=== PATIENT | female | born 1995 ===

== ENCOUNTER 2019-09-03 07:00 | Inpatient (IN) | payer BC, OTHER ==
[~2019-09-03 07:00] MED LIST: Lidocaine 1%/Sod Bicarbonate in NS 8.4% 1 ML Syringe IDERM PRN; Sodium Chloride 0.9% 10 ML Syringe FLUSH PRN
[2019-09-03] MEDS: Lactated Ringers 1,000 ML IV SCH ×2 (07:15→10:54)
[2019-09-03] MEDS ORDERED: Bupivacaine 0.5% 30 ML SDV ONE (07:17)
[2019-09-03] MEDS ORDERED: Midazolam 1 MG/ML 2 ML SDV ONE (07:25)
[2019-09-03] MEDS ORDERED: Propofol 200 MG/20 ML SDV ONE ×2 (07:25→09:10)
[2019-09-03] MEDS ORDERED: Lidocaine 1% 4 ML ONE (07:26)
[2019-09-03] MEDS ORDERED: Morphine PF 10 MG/10 ML SDV ONE (07:26)
--- NOTE | 2019-09-03 07:43 | PCM.PREANE ---
Preanesthetic Assessment - Anesthesia/Transfusion/Family Hx Anesthesia History: Prior Anesthesia Without Reaction Other Type of Anesthesia Reaction Comment: panic attacks after surgery Transfusion History: No Prior Transfusion(s) - Review of Systems General: No Symptoms Pulmonary: No Symptoms Cardiovascular: No Symptoms Gastrointestinal: No Symptoms Neurological: No Symptoms Other: Reports: None - Physical Assessment NPO Status Date: 09/02/19 NPO Status Time: 21:00 Vital Signs: BP: 110/72, HR: 96, RR 16, T:98.1 SpO2: 97% Height: 1.52 m Weight: 78.018 kg ASA Class: 1 Mental Status: Alert & Oriented x3 Airway Class: Mallampati = 2 (receding chin) Dentition: Reports: Normal Dentition Thyro-Mental Finger Breadths: 3 Mouth Opening Finger Breadths: 3 - Allergies Allergies/Adverse Reactions: Allergies Allergy/AdvReac Type Severity Reaction Status Date / Time No Known Allergies Allergy Verified 09/02/19 12:40 - Acknowledgements Anesthesia Type Planned: Spinal Pt an Appropriate Candidate for the Planned Anesthesia: Yes Alternatives and Risks of Anesthesia Discussed w Pt/Guardian: Yes Pt/Guardian Understands and Agrees with Anesthesia Plan: Yes PreAnesthesia Questionnaire HEENT History: Reports: Impaired Vision Other HEENT History: wears glasses Cardiovascular History: Reports: None Respiratory History: Reports: None Gastrointestinal History: Reports: GERD Other Gastrointestinal History: gastric ulcer HOSPICE BEREAVEMENT COORDINATOR History: Reports: , Other (See Below) Other OB/BYN History: ovarian cyst, endometriosis, hirsutism, pelvic pain, laparoscopy Musculoskeletal History: Reports: None Neurological History: Reports: None Psychiatric History: Reports: Anxiety, Depression Endocrine/Metabolic History: Reports: None Other Endocrine/Metabolic History: female hirsutism Hematologic History: Reports: Anemia Immunologic History: Reports: None Oncologic (Cancer) History: Reports: None Dermatologic History: Reports: None - Past Surgical History Head Surgeries/Procedures: Reports: None HEENT Surgical History: Reports: Oral Surgery Cardiovascular Surgical History: Reports: None Respiratory Surgical History: Reports: None GI Surgical History: Reports: EGD Endocrine Surgical History: Reports: None Neurological Surgical History: Reports: None Musculoskeletal Surgical History: Reports: None Oncologic Surgical History: Reports: None Dermatological Surgical History: Reports: None - SUBSTANCE USE Smoking Status *Q: Never Smoker Second Hand Smoke Exposure: No Recreational Drug Use History: No - HOME MEDS Home Medications: Home Meds Omeprazole 20 mg PO DAILY PRN 07/09/15 [History] buPROPion HCl [Wellbutrin SR] 150 mg PO BID 09/02/19 [History] oxyCODONE HCl/Acetaminophen [Oxycodone-Acetaminophen 5-325] 1 - 2 tab PO Q4H PRN 09/02/19 [History] - CURRENT (IN HOUSE) MEDS Current Meds: Current Medications Lactated Ringer's (Ringers, Lactated) 1,000 mls @ 125 mls/hr IV ASDIRECTED ELISSA Lidocaine/Sodium Bicarbonate (Buffered Lidocaine 1% In Ns 8.4%) 0.25 ml IDERM ONETIME PRN PRN Reason: Prior to IV Start Sodium Chloride (Saline Flush) 10 ml FLUSH ASDIRECTED PRN PRN Reason: Keep Vein Open Discontinued Medications Bupivacaine HCl (Marcaine 0.5%) Confirm Administered Dose 30 ml .ROUTE .STK-MED ONE Stop: 09/03/19 07:18 Lidocaine HCl (Xylocaine-Mpf 1%) Confirm Administered Dose 4 mls @ as directed .ROUTE .STK-MED ONE Stop: 09/03/19 07:27 Midazolam HCl (Versed 1 Mg/Ml) Confirm Administered Dose 2 mg .ROUTE .STK-MED ONE Stop: 09/03/19 07:26 Morphine Sulfate (Duramorph Pf) Confirm Administered Dose 10 mg .ROUTE .STK-MED ONE Stop: 09/03/19 07:27 Propofol (Diprivan 20 Ml) Confirm Administered Dose 400 mg .ROUTE .STK-MED ONE Stop: 09/03/19 07:26
[2019-09-03] MEDS ORDERED: ceFAZolin 1 GM Vial ONE (07:59)
[2019-09-03] MEDS ORDERED: diphenhydrAMINE 50 MG/ML SDV IVPUSH PRN (08:24)
[2019-09-03] MEDS ORDERED: fentaNYL 100 MCG/2 ML SDV IVPUSH PRN (08:24)
[2019-09-03] MEDS ORDERED: Lactated Ringers 1,000 ML ONE ×3 (08:24→09:23)
[2019-09-03] MEDS ORDERED: Ondansetron 4 MG/2 ML SDV IVPUSH PRN (08:24)
[2019-09-03] MEDS ORDERED: Ondansetron 4 MG/2 ML SDV ONE (09:27)
[2019-09-03] MEDS ORDERED: Acetaminophen/oxyCODONE 325-5 MG Tab PO PRN (09:48)
[2019-09-03] MEDS ORDERED: Lactated Ringers 1,000 ML IV SCH (10:00)
--- NOTE | 2019-09-03 10:05 | PCM.OPNOTE ---
- General Post-Op/Procedure Note Date of Surgery/Procedure: 09/03/19 Operative Procedure(s): Laparotomy with total abdominal hysterectomy with bilateral salpingo-oophorectomy Findings: Uterus is small with no adhesions anteriorly. Posteriorly was adhered to the sigmoid colon. The right ovary was approximately 11 cm in size with the endometrioma present. The right and left fallopian tubes were edematous. The left ovary was enlarged approximately 6-7 cm and consistent with endometrioma also. Strict cul-de-sac was completely obliterated and findings were consistent with stage IV endometriosis. With evacuation of the right ovarian cyst chocolate -appearing fluid was present consistent with an endometrioma. Pre Op Diagnosis: 1. Pelvic pain. 2. Bilateral ovarian endometriomas. 3. Secondary infertility Post-Op Diagnosis: Same with stage IV endometriosis with posterior cul-de-sac obliteration and bilateral endometriomas Anesthesia Technique: Local, Moderate Sedation, Spinal Other Anesthesia Type: Marcaine 0.5%20 mL local Primary Surgeon: Timothy Obrien Secondary Surgeon: Pop Cole Anesthesia Provider: Tigre Worthington Reason Lending Activities Supervisor Was Necessary: Retraction, assistance, patient safety, quality of care Output, Urine Amount: 250 EBL in mLs: 450 Drain/Tube Comments:: Indwelling bladder catheter Complications: None Condition: Good Free Text/Narrative:: Surgery duration: 60 minutes Procedure: After adequate consent was obtained, the patient was taken to the operating room. She was given 2 g of Ancef IV for infection prophylaxis. She had sequential compression stockings placed for DVT prophylaxis. She is administered spinal incision with sedation. After adequate administration of anesthesia patient was placed in a frog-leg position and was prepped vaginally and abdominally in the routine fashion. Xiong catheter was placed. Patient's abdomen was then opened through a Pfannenstiel skin incision. The incision was carried down through skin, subcutaneous and fascial layers. Abdominal cavity was entered without problems. Stage IV endometriosis with complete obliteration of the posterior cul-de-sac secondary to bowel along with adhesion of both ovaries and fallopian tubes to the posterior aspect of the uterus was then noted. Right ovary is found to be approximately 11 cm in diameter and consistent with a right ovarian endometrioma. Left ovary was smaller but consistent with an endometrioma also. A large sized Santos self-retaining retractor was placed. Right ovarian endometrioma was then activated under controlled situation to allow for easier access to the posterior uterine area. The uterus was elevated with a single- tooth tenaculum at the fundus. The adhesions on the back scissors were taken down using sharp and blunt dissection taking care to avoid injury to the bowel. Anterior cul-de-sac was noted to have no significant adhesions. Using a Enseal vessel closure device the right infundibulopelvic ligament and eventually the fallopian tube mesosalpinx was taken down. Ovaries were removed per patient desire. The ovarian ligament, round ligament, broad ligament were then taken down in a routine stepwise fashion using the Enseal system. Same was done on patient's left side. The cardinal ligaments were taken down on each side to the level of the to the cervix. The angles of the vagina were then crossclamped using straight Redford and then Farhad clamps 2 these pedicles were cut and were suture ligated with Farhad stitch of #1 Vicryl. A short running locked #1 Vicryl suture was then placed in the middle of the cervical cuff to complete the closure. Some small bleeders in the area of the cuff were cauterized. A small piece of Gelfoam was placed. Hemostasis was confirmed at this time. Prior to the Gelfoam being place the pelvis was irrigated with fluid aspirated. All lap sponges were removed and accounted for. The abdominal was then closed. The fascia was closed with a running suture of #1 PDS from angle to angle. The subcutaneous area was closed with 20 Monocryl suture first an interrupted layer. Subcuticular closure was then undertaken using 3-0 Monocryl suture on the Christophe needle. The incision was further asked made with Prineo mesh. The patient left the operating room in good condition.
--- NOTE | 2019-09-03 10:10 | PCM.POSTAN ---
POST ANESTHESIA ASSESSMENT - MENTAL STATUS Mental Status: Alert, Oriented - VITAL SIGNS Vital Signs: Last Vital Signs Temp 97.1 F 09/03/19 09:49 Pulse 84 09/03/19 09:49 Resp 12 09/03/19 09:49 BP 93/53 L 09/03/19 09:49 Pulse Ox 99 09/03/19 09:49 - RESPIRATORY Respiratory Status: Respiratory Rate WNL, Airway Patent, O2 Saturation Stable, Supplemental Oxygen - CARDIOVASCULAR CV Status: Pulse Rate WNL, Blood Pressure Stable - GASTROINTESTINAL GI Status: No Symptoms - PAIN Pain Score: 0 (post SAB) - POST OP HYDRATION Hydration Status: Adequate & Stable - OBSERVATIONS Free Text/Narrative:: patient c/o facial itching. Benadryl PRN is being given
[2019-09-03] MEDS ORDERED: Gelatin Sponge,Absorbable 12-7 mm Sponge TOP ONE (13:10)
[2019-09-03] MEDS: Ondansetron 4 MG/2 ML SDV IVPUSH PRN ×2 (14:13→21:36)
[2019-09-03] MEDS ORDERED: Haloperidol Lactate 5 MG/ML SDV IVPUSH SCH (17:07)
[2019-09-03] MEDS ORDERED: Scopolamine 1.5 MG Transdermal Patch TOP SCH (17:15)
[2019-09-03] MEDS: Ibuprofen 400 MG Tab PO PRN (17:16)
[2019-09-03] MEDS: Acetaminophen/oxyCODONE 325-5 MG Tab PO PRN (21:35)
[2019-09-03] MEDS: buPROPion 150 MG Tab.SR PO SCH (21:35)
[2019-09-04] MEDS: Acetaminophen/oxyCODONE 325-5 MG Tab PO PRN ×2 (06:13→10:23)
[2019-09-04] MEDS: buPROPion 150 MG Tab.SR PO SCH (09:16)
[2019-09-04] MEDS: Ibuprofen 400 MG Tab PO PRN (09:19)
--- NOTE | 2019-09-04 09:54 | PCM48HPAN ---
Post Anesthesia Note - EVALUATION WITHIN 48HRS OF ANESTHETIC Vital Signs in Normal Range: Yes Patient Participated in Evaluation: Yes Respiratory Function Stable: Yes Airway Patent: Yes Cardiovascular Function Stable: Yes Hydration Status Stable: Yes Pain Control Satisfactory: Yes Nausea and Vomiting Control Satisfactory: Yes Mental Status Recovered: Yes Vital Signs: Last Vital Signs Temp 98.1 F 09/04/19 09:01 Pulse 109 H 09/04/19 08:00 Resp 16 09/04/19 09:01 BP 120/87 09/04/19 09:01 Pulse Ox 97 09/04/19 08:00 - COMMENTS/OBSERVATIONS Free Text/Narrative:: Patient is on her postoperative day 1. States having severe pruritus and nauseas yesterday that have subsided completely by now. Postoperative pain is reported as "manageable". Back on diet as tolerated, Xiong catheter removed, ambulating to the bathroom, no difficulty urinating.
--- NOTE | 2019-09-04 10:37 | PCM.DCSUM1 ---
Discharge Summary - Hospital Course Free Text/Narrative:: Chago is a 23-year-old 1 para 1001 white female who was admitted on 09/02 for a laparotomy with total abdominal hysterectomy with bilateral salpingo -oophorectomy done for stage IV endometriosis, bilateral ovarian endometriomas and progressive severe pelvic pain. Please see history and physical for details. Patient underwent total abdominal hysterectomy with bilateral subcutaneous oophorectomy. Right ovary was involved with the 11 cm endometrioma left ovary had a smaller endometrioma present. There were significant adhesions of the anterior sigmoid to the posterior uterus and the ovary. Posterior cul-de- sac was completely obliterated. Procedure 1 well and no complications were encountered. Postoperative patient's pain was controlled with Duramorph which was given through the spinal block. At approximately 24 hours she also started on some ibuprofen and some Percocet. Pain is 3-4 on a scale 10 in between doses of pain medication. She's had some nausea which was controlled with scopolamine and a dose held all. Zofran was also given. Her vital signs been stable throughout the postoperative course. Urine output has been good and she is voiding now well on her own. She is ambulating without problems. Physical exam is within normal limits. Lungs are clear with good breath sounds in all lung iraheta. Cardiovascular exam shows regular and rhythm. Abdomen shows and shape, incision is dry, intact with Prineo mesh in place. No evidence of infection, hematoma or seroma. Legs are nontender Patient is desiring discharge home today. Diagnosis: Stroke: No - Discharge Data Discharge Date: 09/04/19 Discharge Disposition: Home, Self-Care 01 Condition: Good - Referral to Home Health Primary Care Physician: Timothy Obrien MD - Patient Summary/Data Operative Procedure(s) Performed: Laparotomy with total abdominal hysterectomy with bilateral salpingo-oophorectomy - Patient Instructions Diet: Regular Diet as Tolerated (High fiber diet with adequateoral) Activity: As Tolerated (No intercourse or tampons until seen back. No driving a car or lifting more than 15 pounds 10 days.) Driving: Do Not Drive Showering/Bathing: May Shower Wound/Incision Care: Keep Operative Site/Wound Site Clean and Dry Notify Provider of: Fever, Increased Pain, Swelling and Redness, Drainage, Nausea and/or Vomiting - Discharge Plan Prescriptions/Med Rec: Estrogens, Conjugated [Premarin] 0.625 mg PO DAILY #30 tablet Ibuprofen 600 mg PO Q4HR PRN #30 tablet PRN Reason: Pain oxyCODONE HCl/Acetaminophen [Oxycodone-Acetaminophen 5-325] 1 - 2 tab PO Q4H PRN #30 tablet PRN Reason: Pain Home Medications: Home Meds Omeprazole 20 mg PO DAILY PRN 07/09/15 [History] buPROPion HCl [Wellbutrin SR] 150 mg PO BID 09/02/19 [History] Estrogens, Conjugated [Premarin] 0.625 mg PO DAILY #30 tablet 09/04/19 [Rx] Ibuprofen 600 mg PO Q4HR PRN #30 tablet 09/04/19 [Rx] oxyCODONE HCl/Acetaminophen [Oxycodone-Acetaminophen 5-325] 1 - 2 tab PO Q4H PRN #30 tablet 09/04/19 [Rx] Referrals: Timothy Obrien MD [Primary Care Provider] - (Patient is to call in to clinic in 2 weeks. She will return to clinic in 4 weeksDr. Obrien.) - Discharge Summary/Plan Comment DC Time >30 min.: No Discharge Summary/Plan Comment: Discharge instructions: 1. Discharge home 2. Diet, activity and follow-up discussed with patient. Recommend high fiber and adequate fluid intake. 3. Precautions given concern increased pain, bleeding, temperature, signs/ symptoms of DVT/PE. 4. Medications per home medication was printed, discussed with and given to the patient. 5. Return to clinic-Dr. Obrien[facility]-patient is to call and give an update in 2 weeks and return to clinic for evaluation in 4 weeks. Diagnosis: 1. Stage IV endometriosis status post laparotomy with total abdominal hysterectomy with bilateral salpingo-oophorectomy 2. Progressive pelvic pain Condition: Good - Patient Data Vitals - Most Recent: Last Vital Signs Temp 36.7 C 09/04/19 09:01 Pulse 109 H 09/04/19 08:00 Resp 16 09/04/19 09:01 BP 120/87 09/04/19 09:01 Pulse Ox 97 09/04/19 08:00 Weight - Most Recent: 79.878 kg I&O - Last 24 hours: Intake & Output 09/03/19 09/04/19 09/04/19 22:59 06:59 14:59 Intake Total 640 300 Output Total 1000 Balance -360 300 Lab Results - Last 24 hrs: Laboratory Results - last 24 hr 09/04/19 09/04/19 Range/Units 05:31 05:31 WBC 8.14 (3.98-10.04) K/mm3 RBC 3.28 L (3.98-5.22) M/mm3 Hgb 9.3 L D (11.2-15.7) gm/dl Hct 29.1 L (34.1-44.9) % MCV 88.7 D (79.4-94.8) fl MCH 28.4 (25.6-32.2) pg MCHC 32.0 L (32.2-35.5) g/dl RDW Std Deviation 38.9 (36.4-46.3) fL Plt Count 215 D (182-369) K/mm3 MPV 10.6 (9.4-12.3) fl Creatinine 0.8 (0.55-1.02) mg/dL Est Cr Clr Drug Dosing 77.22 mL/min Estimated GFR (MDRD) > 60 (>60) mL/min Med Orders - Current: Current Medications Bupropion HCl (Wellbutrin Sr) 150 mg PO BID [facility] Last Admin: 09/04/19 09:16 Dose: 150 mg Estrogens Conjugated (Premarin) 0.625 mg PO DAILY [facility] Last Admin: 09/04/19 10:25 Dose: Not Given Ibuprofen (Motrin) 600 mg PO Q6H PRN PRN Reason: Pain (mild 1-3) Last Admin: 09/04/19 09:19 Dose: 600 mg Lidocaine/Sodium Bicarbonate (Buffered Lidocaine 1% In Ns 8.4%) 0.25 ml IDERM ONETIME PRN PRN Reason: Prior to IV Start Ondansetron HCl (Zofran) 4 mg IVPUSH Q4H PRN PRN Reason: Nausea/Vomiting Last Admin: 09/03/19 21:36 Dose: 4 mg Oxycodone/Acetaminophen (Percocet 325-5 Mg) 1 tab PO Q4H PRN PRN Reason: Pain (moderate 4-6) Last Admin: 09/04/19 10:23 Dose: 1 tab Oxycodone/Acetaminophen (Percocet 325-5 Mg) 2 tab PO Q4H PRN PRN Reason: Pain (severe 7-10) Sodium Chloride (Saline Flush) 10 ml FLUSH ASDIRECTED PRN PRN Reason: Keep Vein Open Discontinued Medications Bupivacaine HCl (Marcaine 0.5%) Confirm Administered Dose 30 ml .ROUTE .STK-MED ONE Stop: 09/03/19 07:18 Last Admin: 09/03/19 08:26 Dose: 20 ml Cefazolin Sodium (Ancef) Confirm Administered Dose 2 gm .ROUTE .STK-MED ONE Stop: 09/03/19 08:00 Diphenhydramine HCl (Benadryl) 25 mg IVPUSH Q6H PRN PRN Reason: Pruritis Stop: 09/03/19 12:00 Last Admin: 09/03/19 09:59 Dose: 25 mg Fentanyl (Sublimaze) 50 mcg IVPUSH Q5M PRN PRN Reason: Pain Stop: 09/03/19 10:00 Gelatin (Gelfoam 12-7 Mm) Confirm Administered Dose 1 each TOP .STK-MED ONE Stop: 09/03/19 13:11 Last Admin: 09/03/19 09:00 Dose: 1 each Haloperidol Lactate (Haldol) 1 mg IVPUSH ONETIME ELISSA Stop: 09/03/19 21:00 Last Admin: 09/03/19 17:16 Dose: 1 mg Lactated Ringer's (Ringers, Lactated) 1,000 mls @ 125 mls/hr IV ASDIRECTED ELISSA Last Admin: 09/03/19 10:54 Dose: 125 mls/hr Lidocaine HCl (Xylocaine-Mpf 1%) Confirm Administered Dose 4 mls @ as directed .ROUTE .STK-MED ONE Stop: 09/03/19 07:27 Lactated Ringer's (Ringers, Lactated) Confirm Administered Dose 1,000 mls @ as directed .ROUTE .STK-MED ONE Stop: 09/03/19 08:25 Lactated Ringer's (Ringers, Lactated) Confirm Administered Dose 1,000 mls @ as directed .ROUTE .STK-MED ONE Stop: 09/03/19 08:25 Lactated Ringer's (Ringers, Lactated) Confirm Administered Dose 1,000 mls @ as directed .ROUTE .STK-MED ONE Stop: 09/03/19 09:24 Midazolam HCl (Versed 1 Mg/Ml) Confirm Administered Dose 2 mg .ROUTE .STK-MED ONE Stop: 09/03/19 07:26 Miscellaneous Medication (Phenylephrine 1 Mg/10 Ml-Ns) Confirm Administered Dose 1 mg IV .STK-MED ONE Stop: 09/03/19 08:35 Miscellaneous Medication (Phenylephrine 1 Mg/10 Ml-Ns) Confirm Administered Dose 1 mg IV .STK-MED ONE Stop: 09/03/19 09:07 Miscellaneous Medication (Phenylephrine 1 Mg/10 Ml-Ns) Confirm Administered Dose 1 mg IV .STK-MED ONE Stop: 09/03/19 09:37 Morphine Sulfate (Duramorph Pf) Confirm Administered Dose 10 mg .ROUTE .STK-MED ONE Stop: 09/03/19 07:27 Ondansetron HCl (Zofran) 4 mg IVPUSH ONETIME PRN PRN Reason: Nausea/Vomiting Stop: 09/03/19 12:00 Ondansetron HCl (Zofran) Confirm Administered Dose 4 mg .ROUTE .STK-MED ONE Stop: 09/03/19 09:28 Propofol (Diprivan 20 Ml) Confirm Administered Dose 400 mg .ROUTE .STK-MED ONE Stop: 09/03/19 07:26 Propofol (Diprivan 20 Ml) Confirm Administered Dose 200 mg .ROUTE .STK-MED ONE Stop: 09/03/19 09:11 Scopolamine (Transderm-Scop) 1.5 mg TOP ONETIME ELISSA Stop: 09/03/19 21:00 Last Admin: 09/03/19 17:17 Dose: 1.5 mg
[2019-09-04 11:31] VITALS: BP 96/73; PULSE 94
[2019-09-04] MEDS ORDERED: Ibuprofen 600 MG Tab PO PRN (16:42)
== END 2019-09-04 13:30 | disposition home or self-care (01) | DRG 743 ==
LOC: JD.MS 07:00 → UNDOADMIN 07:00 → UNDODISIN 09-04 13:30
PROVIDERS: ADMIT Obstetrics & Gynecology; ATTEND Obstetrics & Gynecology
PROC: 0UT90ZZ Resection of Uterus, Open Approach (ICD-10-PCS; principal; 2019-09-03)
PROC: 0UB70ZZ Excision of Bilateral Fallopian Tubes, Open Approach (ICD-10-PCS; 2019-09-03)
PROC: 0UB20ZZ Excision of Bilateral Ovaries, Open Approach (ICD-10-PCS; 2019-09-03)
DX: N80.0 Endometriosis of uterus (principal); N80.1 Endometriosis of ovary; K21.9 Gastro-esophageal reflux disease without esophagitis; F32.9 Major depressive disorder, single episode, unspecified; H54.7 Unspecified visual loss; F41.9 Anxiety disorder, unspecified; Z79.899 Other long term (current) drug therapy
CPT/HCPCS: 00840; 36415; 80048; 82565; 84703; 85025; 85027; 86850; 86900; 86901; 94762; A9270-GY; J0690; J1200; J1630; J2001; J2250; J2270; J2370; J2405; J2704; J3490; J7120

== ENCOUNTER 2024-01-14 20:42 | Emergency (ER) | payer MEDICAID, OTHER ==
[2024-01-14] MEDS: Sodium Chloride 0.9% 1,000 ML IV STA (21:39)
[2024-01-14] MEDS: Ondansetron 4 MG/2 ML SDV IVPUSH ONE (21:42)
[2024-01-14] MEDS: Pantoprazole 40 MG Vial IVPUSH ONE (21:42)
[2024-01-14] MEDS: Alum Hydrox/Mag Hydrox/Simeth 30 ML, Lidocaine 2% 15 ML PO ONE (21:44)
[2024-01-14] MEDS: Sodium Chloride 0.9% 10 ML Syringe FLUSH PRN (21:44)
[2024-01-14 21:53] LABS: BASOPHILS PERCENT AUTO 0.3 % (0.0-1.0); EOSINOPHILS ABSOLUTE AUTO 1.1 K/mm3 (0.0-0.4); EOSINOPHILS PERCENT AUTO 12.2 % (0.0-6.0); HEMATOCRIT 41.9 % (37.0-47.0); HEMOGLOBIN 14.1 gm/dl (12.0-16.0); IMMATURE GRAN ABSOLUTE AUTO 0.03 K/mm3 (0.00-0.05); IMMATURE GRAN PERCENT AUTO 0.3 % (0.0-0.4); LYMPHOCYTES ABSOLUTE AUTO 2.4 K/mm3 (1.0-4.8); LYMPHOCYTES PERCENT AUTO 26.1 % (24.0-44.0); MEAN CORPUSCULAR HEMOGLOBIN 28.7 pg (28.0-32.0); MEAN CORPUSCULAR HGB CONC 33.7 g/dl (32.0-36.0); MEAN CORPUSCULAR VOLUME 85.3 fl (83.0-99.0); MEAN PLATELET VOLUME 10.4 fl (9.4-12.3); MONOCYTES ABSOLUTE AUTO 0.6 K/mm3 (0.0-0.8); MONOCYTES PERCENT AUTO 6.9 % (0.0-8.0); NEUTROPHILS ABSOLUTE AUTO 4.9 K/mm3 (1.8-7.7); NEUTROPHILS PERCENT AUTO 54.2 % (41.0-71.0); PLATELET COUNT,PLT 308 K/mm3 (150-400); RED BLOOD CELL COUNT 4.91 M/mm3 (4.10-5.30)
[2024-01-14 22:15] LABS: A/G RATIO 1.1 (1-2); ALBUMIN 4.2 g/dl (3.4-5.0); ANION GAP 11.6 (5-15); BILIRUBIN TOTAL 1.4 mg/dL (0.2-1.0); BUN/CREATININE RATIO 13.6 (14-18); CALCIUM 9.7 mg/dL (8.5-10.1); CREATININE 1.1 mg/dL (0.55-1.02); EST CRCL DRUG DOSING (CG) 56.43 mL/min; POTASSIUM,K 3.6 mEq/L (3.5-5.1)
[2024-01-14] MEDS: Famotidine 20 MG/2 ML SDV IVPUSH ONE (23:23)
[2024-01-14] MEDS: HYDROmorphone 0.5 MG/0.5 ML Syringe IVPUSH ONE (23:24)
[2024-01-15] MEDS: Metoclopramide 10 MG/2 ML SDV IVPUSH ONE (00:49)
[2024-01-15 01:53] VITALS: BP 126/85; PULSE 78
== END 2024-01-15 01:51 | disposition home or self-care (01) ==
LOC: JD.ED 20:42
DX: K27.9 Peptic ulcer, site unspecified, unspecified as acute or chronic, without hemorrhage or perforation (principal); K21.9 Gastro-esophageal reflux disease without esophagitis; Z79.899 Other long term (current) drug therapy
CPT/HCPCS: 36415; 76705; 80053; 83690; 84703; 85025; 96361; 96374; 96375; 99284; A9270; J1170; J2405; J2470; J2765; J3490; J7030